=== PATIENT | male | born 1980 | race African-American/Black ===

== ENCOUNTER 2018-09-30 01:05 | Emergency (ER) | payer OTHER ==
[~2018-09-30] VITALS: Ht 182.9 cm; Wt 110.2 kg
[2018-09-30] MEDS ORDERED: HYDROcodone-ACET 10/325MG TAB PO ONE ×2 (01:30→04:15)
[2018-09-30] MEDS ORDERED: LIDOCAINE 1% HCL (LOCAL ANESTH.) INJ 20ML MDV ONE (03:25)
[2018-09-30] MEDS ORDERED: LIDOCAINE 1% HCL (LOCAL ANESTH.) INJ 20ML MDV IJ ONE (04:00)
[2018-09-30] MEDS ORDERED: cefTRIAXone SOD 1,000 MG VL IM ONE (04:30)
[2018-09-30] MEDS ORDERED: BACITRACIN TOP OINT 1 UD PKG TOP ONE (05:00)
[2018-09-30 05:08] VITALS: BP 153/116
== END 2018-09-30 05:33 | disposition home or self-care (01) ==
LOC: ER 01:07
DX: S61.011A Laceration without foreign body of right thumb without damage to nail, initial encounter (principal); W31.89XA Contact with other specified machinery, initial encounter; Y93.89 Activity, other specified; Y92.69 Other specified industrial and construction area as the place of occurrence of the external cause; Y99.8 Other external cause status
CPT/HCPCS: 12002; 73140; 96372; 99284; J0696; J2001